=== PATIENT | male | born 1940 | race African-American/Black ===

== ENCOUNTER 2016-06-13 03:59 | Inpatient (IN) ==
[2016-06-09 09:07] LABS: MANUAL DIFF NEEDED? NO
[2016-06-09 09:07] LABS: URINE MICRO REVIEW NEEDED? NO; URINE SOURCE CLEAN CATCH
[2016-06-09 09:55] LABS: BILIRUBIN URINE NEGATIVE (NEGATIVE); BLOOD URINE NEGATIVE (NEGATIVE); COLOR YELLOW; GLUCOSE URINE NEGATIVE (NEGATIVE); LEUKOCYTES URINE NEGATIVE (NEGATIVE); NITRITE URINE NEGATIVE (NEGATIVE); PROTEIN URINE NEGATIVE (NEGATIVE); TURBIDITY URINE CLEAR (CLEAR); UROBILINOGEN URINE NORMAL (NORMAL)
[2016-06-09 09:55] LABS: BASO% 1.6 % (0.0-0.8); EOS# 0.36 X1000 (0.0-0.7); EOS% 4.9 % (0.0-10.0); HEMOGLOBIN 15.3 g/dL (14.0-18.0); IMM GRAN# 0.04 X1000 (0.0-0.04); IMM GRAN% 0.5 % (0.0-0.5); LYMPH# 1.88 X1000 (1.2-3.4); LYMPH% 25.6 % (20.5-51.1); MCH 29.3 PG (27-31); MCV 86.2 FL (81-99); MONO# 0.74 X1000 (0.11-0.59); MONO% 10.1 % (1.7-9.3); NEUT% 57.3 % (42.2-75.2); PLT 354 X1000 (130-400); RBC 5.22 XMIL (4.7-6.1)
[2016-06-09 09:56] LABS: UR EPITHELIAL CELLS <10 /HPF (<10); URINE BACTERIA NEGATIVE /HPF; URINE RBC <10 /HPF (<10); URINE WBC <10 /HPF (<10)
[2016-06-09 10:10] LABS: INR 0.99; PROTIME 10.5 Seconds (9.2-11.7); PTT 26.5 Seconds (22.0-36.0)
[2016-06-09 10:17] LABS: AGAP 12; BUN 15 mg/dL (8-22); CALCIUM 10.9 mg/dL (8.8-10.2); CHLORIDE 96 mmol/L (98-107); COSMO 269; POTASSIUM 4.5 mmol/L (3.5-5.1); SODIUM 134 mmol/L (136-145); TCO2 26 mmol/L (25-35)
--- NOTE | 2016-06-09 11:56 | EKG Report ---
Test Performed on : 06/09/2016 08:45:30 AM Test Reason : PAT Blood Pressure : / mmHG Vent. Rate : 093 BPM Atrial Rate : 093 BPM P-R Int : 148 ms QRS Dur : 094 ms QT Int : 334 ms P-R-T Axes : 066 026 064 degrees QTc Int : 415 ms Normal sinus rhythm. Nonspecific T wave abnormality Abnormal ECG When compared with ECG of 27-NOV-2014 12:53, Nonspecific T wave abnormality no longer evident in Inferior leads Nonspecific T wave abnormality, worse in Lateral leads Confirmed by Edwin HERNÁNDEZ, Tong Wilde ([id number]) on 06/10/2016 5:22:22 PM
[2016-06-13] MEDS ORDERED: PEPCID ONE (07:39)
[2016-06-13] MEDS ORDERED: COLACE ONE (07:39)
[2016-06-13] MEDS ORDERED: REGLAN ONE (07:39)
[2016-06-13] MEDS ORDERED: KEFZOL 2 GM/D5W 50 ML ONE (07:40)
[2016-06-13] MEDS ORDERED: LYRICA ONE (07:40)
[2016-06-13] MEDS ORDERED: LR 1,000 ML ONE ×2 (07:40→12:36)
[2016-06-13] MEDS ORDERED: CELEBREX ONE (07:40)
[2016-06-13] MEDS ORDERED: CYKLOKAPRON 1,000 MG/NS 100 ML ONE (08:55)
[2016-06-13] MEDS ORDERED: SODIUM CHLORIDE 0.9% ONE (08:55)
[2016-06-13] MEDS ORDERED: VANCOMYCIN ONE (08:55)
[2016-06-13] MEDS ORDERED: MARCAINE 0.25% PF/EPI 1:200,000 ONE (08:55)
[2016-06-13] MEDS ORDERED: DIPRIVAN 1% 50 ML ONE (08:55)
[2016-06-13] MEDS ORDERED: DURAMORPH ONE (08:55)
[2016-06-13] MEDS ORDERED: TORADOL ONE (08:55)
[2016-06-13] MEDS ORDERED: CLAVE SECONDARY SET 11953 ONE (08:56)
[2016-06-13] MEDS ORDERED: NEOSPORIN G.U. IRRIGANT ONE (08:56)
[2016-06-13] MEDS ORDERED: EXPAREL 1.3% ONE (08:56)
[2016-06-13 10:26] LABS: URINE MICRO REVIEW NEEDED? NO; URINE SOURCE CATH
[2016-06-13 10:30] LABS: BILIRUBIN URINE NEGATIVE (NEGATIVE); BLOOD URINE NEGATIVE (NEGATIVE); COLOR YELLOW; GLUCOSE URINE NEGATIVE (NEGATIVE); LEUKOCYTES URINE NEGATIVE (NEGATIVE); NITRITE URINE NEGATIVE (NEGATIVE); PH URINE 6.5; PROTEIN URINE NEGATIVE (NEGATIVE); SP GRAVITY URINE 1.012; TURBIDITY URINE CLEAR (CLEAR); UROBILINOGEN URINE NORMAL (NORMAL)
[2016-06-13 10:31] LABS: UR EPITHELIAL CELLS <10 /HPF (<10); URINE BACTERIA NEGATIVE /HPF; URINE RBC <10 /HPF (<10); URINE WBC <10 /HPF (<10)
[2016-06-13] MEDS: CYKLOKAPRON 1,000 MG/NS 100 ML ONE ×2 (10:42→11:08)
[2016-06-13] MEDS ORDERED: NS 1,000 ML ONE (11:23)
[2016-06-13] MEDS ORDERED: FENTANYL ONE (12:21)
[2016-06-13] MEDS ORDERED: DIPRIVAN 1% ONE (12:22)
[2016-06-13] MEDS ORDERED: EPHEDRINE ONE (12:35)
[2016-06-13] MEDS ORDERED: NEO-SYNEPHRINE ONE (12:35)
[2016-06-13] MEDS ORDERED: XYLOCAINE-MPF 2% ONE (12:36)
--- NOTE | 2016-06-13 13:00 | OPERATIVE NOTE ---
PROCEDURE DATE: 06/13/2016 PREOPERATIVE DIAGNOSIS: Right knee failed patellar component. POSTOPERATIVE DIAGNOSES: 1. Right knee failed patellar component. 2. Worn polyethylene insert. PROCEDURE PERFORMED: Right knee revision of patellar component and exchange of polyethylene. SURGEON: Joaquin Go MD. LABOR ARBITRATOR HEARING OFFICE: FAUSTO Valentine ANESTHESIA: General. COMPLICATIONS: None. BLOOD LOSS: Minimal. DESCRIPTION OF PROCEDURE: The patient was brought to the operative suite and placed in supine position. After successful administration of general anesthesia, a well-padded tourniquet was placed on the right proximal thigh and the right lower extremity was prepped and draped in the usual sterile fashion. The leg was exsanguinated and tourniquet insufflated to 350 torr. Using the previous incision and extending it proximally and distally, this was dissected sharply through the skin and full-thickness skin flaps were elevated both medially and laterally. A quadriceps tendon-splitting incision was then made superior to the superior pole of the patella, extending it down to the patella and then around the patella distally for a medial parapatellar arthrotomy. The medial arthrotomy was then elevated off the medial tibial plateau. The scar tissue was removed. The loose patellar component was removed. The inflamed synovium was removed. There was a bony prominence in the superior portion of the patella that was removed. There was what appeared to be a lateral bipartite patellar component that was removed as well. The patella was then shaved flush and debrided of any soft tissue. It was sized to size 32. A size 32 guide was used to drill peg holes. A trial was placed, 32 mm, and found to be excellent patellar tracking. Attention was directed to removing the polyethylene that was removed with an elevator and then the soft tissue was debrided around the tibial component, the knee was copiously irrigated and dried. The knee was copiously infiltrated with Exparel, including the posterior capsule, anterior capsule, medial and lateral collateral ligaments, anterior musculature, and subcutaneous tissue. The definitive 13 mm articular insert was trialed and then found to be an excellent fit, and then the definitive 1 was locked into the tray. The knee was again taken through range of motion and again found to have excellent alignment, balancing, range of motion, and patellar tracking. The trial patella was removed. The definitive patella was cemented into place, excess cement being removed with a Underwood. Once the cement had hardened, any other excess cement was removed with an osteotome. The knee was copiously irrigated and dried, being certain all bone and cement were removed. A drain was placed, exiting superolaterally and buried in the lateral gutter. The medial arthrotomy was closed with interrupted #1 suture. The knee was again taken through range of motion and again found to have excellent patellar tracking, excellent knee flexion, and excellent stability of the knee. The skin edges were approximated with 2-0 Vicryl. The skin was closed with skin meg. A sterile dressing was applied. The patient tolerated the procedure well without complication. At the end of the procedure, all counts were correct x2. The patient was transferred to the recovery room in stable condition.
[2016-06-13] MEDS ORDERED: ZOFRAN IV PRN (13:30)
[2016-06-13] MEDS ORDERED: MORPHINE IV PRN (13:30)
[2016-06-13] MEDS ORDERED: AMBIEN PO PRN (13:30)
[2016-06-13] MEDS: NS 1,000 ML IV SCH (14:25)
[2016-06-13] MEDS: ULTRAM PO SCH ×2 (14:40→19:59)
[2016-06-13] MEDS: TYLENOL PO SCH ×2 (14:40→19:58)
[2016-06-13] MEDS: COLACE PO SCH ×3 (14:41→22:43)
[2016-06-13] MEDS: PERIDEX MT SCH ×3 (14:41→22:44)
--- NOTE | 2016-06-13 15:59 | HISTORY AND PHYSICAL ---
CHIEF COMPLAINT: Right knee pain. HISTORY OF PRESENT ILLNESS: Mr. Garnett is a 76-year-old man with complaint of right knee pain for a couple years. He had a total knee arthroplasty done on the right knee in about the year 2009. Over the last 2 years he has been having pain. Radiographic images of the knee reveals possibly loose prosthetic parts. He is being admitted today for a revision of the right total knee arthroplasty. PAST MEDICAL HISTORY: Hypertension, high cholesterol, peptic ulcer disease, osteoarthritis. SURGICAL HISTORY: Prostatectomy, right total knee arthroplasty, hemorrhoidectomy, hernia, stomach ulcer. PAST FAMILY HISTORY: Noncontributory. SOCIAL HISTORY: . Denies tobacco, denies alcohol. HOME MEDICATIONS: Desyrel 100 mg p.o. at bedtime, nifedipine ER 30 mg p.o. daily, Meloxicam 15 mg p.o. daily, hydrochlorothiazide 12.5 mg p.o. daily, Lipitor 20 mg p.o. daily. ALLERGIES: No known drug allergies. PRIMARY CARE PROVIDER: Dr. Barker. REVIEW OF SYSTEMS: HEENT: Patient reports having glasses and dentures. Denies any other HEENT problems. Cardiac: Patient denies ever having any chronic heart disease or any heart problems whatsoever. Pulmonary: Patient denies any chronic lung disease or any current cough or wheezing. Gastrointestinal: Patient denies any nausea, vomiting, diarrhea, or any chronic gastrointestinal problems. Genitourinary: Patient denies any genitourinary problems. Neurological: Patient reports good sensation and no neurological deficits. Musculoskeletal: The patient reports right knee pain. PHYSICAL EXAMINATION: GENERAL: The patient is awake, sitting up in bed. He is articulate and able to answer questions appropriately. His is at the bedside. HEENT: Head is normocephalic, atraumatic. Pupils equal, round, react to light. Nares patent. Throat without exudate. CARDIAC: S1-S2 auscultated. No murmur, rub or gallop noted. LUNGS: Clear to auscultation bilaterally in all lung barrera. GASTROINTESTINAL: Abdomen is soft, nontender, nondistended. Bowel sounds present all quadrants. GENITOURINARY: Not examined. NEUROLOGICAL: Patient has good sensation to dull touch in all extremities. Cranial nerves 2-12 grossly intact. MUSCULOSKELETAL: On physical examination of the right knee the gentleman has pain with passive range of motion of the right knee. IMPRESSION: Pain in right knee, breakdown of orthopedic device. PLAN: Right total knee revision arthroplasty. The risks, benefits, and alternatives of the surgery were discussed with the patient including the risk of anesthesia, bleeding, damage to blood vessels, nerves, tendons, ligaments, and other imponderables were discussed. The patient agrees to proceed with the surgery at this time. Dictated by FAUSTO Valentine for Joaquin Go MD
[2016-06-13] MEDS: KEFZOL 2 GM/D5W 50 ML IV SCH (16:32)
[2016-06-13] MEDS: OXY IR PO PRN ×2 (16:41→18:35)
[2016-06-13] MEDS: LYRICA PO SCH ×2 (19:58→22:44)
[2016-06-13] MEDS: DESYREL PO SCH ×2 (19:58→22:44)
[2016-06-13] MEDS: CELEBREX PO SCH (19:59)
[2016-06-14] MEDS: KEFZOL 2 GM/D5W 50 ML IV SCH (02:00)
[2016-06-14] MEDS: NS 1,000 ML IV SCH ×4 (02:00→21:42)
[2016-06-14] MEDS: TYLENOL PO SCH ×4 (03:47→21:40)
[2016-06-14] MEDS: ULTRAM PO SCH ×4 (03:47→21:41)
[2016-06-14 05:53] LABS: HEMATOCRIT 39.3 % (42.0-52.0)
[2016-06-14] MEDS: XARELTO PO SCH (06:15)
[2016-06-14] MEDS: LYRICA PO SCH ×2 (08:12→21:41)
[2016-06-14] MEDS: LIPITOR PO SCH (08:12)
[2016-06-14] MEDS: COLACE PO SCH ×2 (08:12→21:41)
[2016-06-14] MEDS: PERIDEX MT SCH ×2 (08:12→21:40)
[2016-06-14] MEDS: PEPCID PO SCH (08:13)
[2016-06-14] MEDS: OXY IR PO PRN ×2 (08:14→14:31)
[2016-06-14] MEDS ORDERED: DECADRON IV ONE (09:00)
[2016-06-14] MEDS ORDERED: HYDROCHLOROTHIAZIDE PO SCH (09:00)
--- NOTE | 2016-06-14 09:12 | PROGRESS NOTE ---
DATE: 06/14/2016 SUBJECTIVE: Jersey Garnett is a 76-year-old male, who is postoperative day 1 from revision of his right total knee arthroplasty, patellar component, as well as his polyethylene insert exchange. He has no complaints today. He states he wishes to go to rehabilitation later in the week. OBJECTIVE: General: He is a well-developed, well-nourished male. He is alert, oriented, and cooperative on exam. Extremities: His dressing is clean, dry, and intact without sign of any significant drainage. He has had minimal output from his drain. Vital Signs: His vital signs are stable. He is afebrile. His hematocrit is 39.3%. Extremities: His leg is neurovascularly intact without signs of infection or deep venous thrombosis. ASSESSMENT: Stable postoperative day 1 visit from a right knee revision. PLAN: We will work on physical therapy with him today. We will remove his drains and change his dressing, take out his Regan and discontinue his intravenous fluids.
[2016-06-14] MEDS: CELEBREX PO SCH (09:20)
[2016-06-14 09:51] LABS: CALCIUM 9.4 mg/dL (8.8-10.2)
[2016-06-14 10:50] LABS: ALBUMIN 3.7 g/dL (3.5-5.0); ALKALINE PHOSPHATASE 44 U/L (32-122); DIRECT BILIRUBIN < 0.20 mg/dL (0.00-0.20); GOT 14 U/L (10-34); GPT 17 U/L (10-44); TOTAL BILIRUBIN 0.29 mg/dL (0.20-1.00); TOTAL PROTEIN 6.2 g/dL (6.3-8.3)
--- NOTE | 2016-06-14 13:18 | CONSULTATION ---
DATE OF CONSULTATION: 06/14/2016 CONSULTING PHYSICIAN: Dr. Go with orthopedics. Consulting major medical management. CHIEF COMPLAINT: Right knee pain. HISTORY OF PRESENT ILLNESS: Mr. Garnett is a 76-year-old male with a history of hypertension, hyperlipidemia, and prostate cancer who is status post right total knee arthroplasty revision by Dr. Go done yesterday. Pre-admission testing revealed the patient had a creatinine of 1.3. Blood work today reveals his creatinine has gone up to 2.0 with a rise in his BUN as well. Prior to surgery patient had no complaints with the exception of his knee pain, postoperatively the patient has been comfortable and pain-free, he has had no chest pain, no shortness of breath. No belly pain, nausea, vomiting or diarrhea. His vital signs have been stable throughout. He became mildly hypotensive yesterday at around 2 in the afternoon. Lowest blood pressure read was 97/63, he is afebrile. We have been asked to follow along for medical management. PAST MEDICAL HISTORY: 1. Hypertension. 2. Hyperlipidemia. 3. Prostate cancer. PAST SURGICAL HISTORY: 1. Right TKA. 2. Prostatectomy. 3. Hemorrhoidectomy. 4. Hernia repairs. 5. Repair of stomach ulcer. FAMILY HISTORY: Mother with colon cancer. Father with some type of blood cancer. REVIEW OF SYSTEMS: Fourteen-point review of systems obtained and found to be negative with the exception of the HPI. ALLERGIES: No known drug allergies. HOME MEDICATIONS: 1. Lipitor 20 mg daily. 2. Hydrochlorothiazide 12.5 mg daily. 3. Meloxicam 15 mg daily. 4. Nifedipine ER 30 mg daily. 5. Trazodone 100 mg p.o. at bedtime. PHYSICAL EXAMINATION: Vital Signs: Blood pressure 102/60, heart rate 72, respiratory 16, O2 saturation is 95% on room air. Temperature is 97.5 degrees. General: This is a thin, elderly- appearing 76-year-old male, lying in hospital bed in no acute distress. Neurologic: The patient is awake, alert, oriented. He follows commands without focal deficits. HEENT: Head is atraumatic and normocephalic. His pupils are equal, round, and reactive to light. Oral mucosa is a bit dry. Trachea is midline. Neck: There is no JVD or carotid bruits. Chest: Clear to auscultation bilaterally. CV: Regular rate and rhythm. S1-S2 is noted. No murmurs, gallops, clicks, rubs. GI: Soft, nondistended, nontender. Bowel sounds positive. Extremities: Right surgical incision is clean, dry, and intact. Lower extremities without edema, clubbing or cyanosis. Pulses are palpable bilaterally. DIAGNOSTIC DATA: Sodium 130, potassium 5, chloride 94, CO2 20, anion gap 16, BUN 29, creatinine 2, glucose 124, calcium 9.4, hemoglobin 13, hematocrit 39.3. ASSESSMENT AND PLAN: 1. Status post right total knee arthroplasty revision: Per Dr. Go and his team, continue early ambulation, DVT prophylaxis, and incentive spirometry. 2. Acute kidney injury: Likely prerenal, we are going to check the renal ultrasound, urine studies and stop his hydrochlorothiazide and any NSAIDs as well as any other nephrotoxic medications. We will increase his normal saline to 150 mL an hour. We will order creatinine for the morning. 3. Hyponatremia, hypovolemic: We are going to check urine studies and increase his IV fluid hydration. 4. Hypertension: Continue his nifedipine and add p.r.n. medications and withhold the hydrochlorothiazide. 5. Hyperlipidemia: Chronic, stable, continue home medications. 6. Deep vein thrombosis prophylaxis is provided with Xarelto which has been ordered by Dr. Go. 7. We would like to thank you for this consultation. We will continue to follow along with you. Dictated by FAUSTO Clark for Alberto Garcia MD
--- NOTE | 2016-06-14 14:19 | Diag Imaging Result Document ---
PROCEDURE NAME: US RENAL 2 (RETROPER) COMPLETE - 06/14/2016 RENAL ULTRASOUND: COMPARISON: None available. FINDINGS: The renal echotexture is grossly unremarkable, bilaterally. No discrete renal mass or hydronephrosis is identified. The right kidney is diminutive as compared to the left. The right kidney measures 7.6 cm in the greatest longitudinal axis. The left kidney measures 9.8 cm in the greatest longitudinal axis. Both renal cortices measure up to 0.9 cm in thickness. The patient voided just prior to the exam and the urinary bladder is completely nondistended. IMPRESSION: Diminutive right kidney as compared to the left. Essentially unremarkable, otherwise.
[2016-06-14] MEDS: DESYREL PO SCH (21:41)
[2016-06-14 21:42] LABS: URINE MICRO REVIEW NEEDED? NO; URINE SOURCE VOIDED
[2016-06-14 22:08] LABS: BILIRUBIN URINE NEGATIVE (NEGATIVE); BLOOD URINE MODERATE (NEGATIVE); COLOR YELLOW; GLUCOSE URINE 70 mg/dL (NEGATIVE); LEUKOCYTES URINE TRACE (NEGATIVE); NITRITE URINE NEGATIVE (NEGATIVE); PROTEIN URINE TRACE mg/dL (NEGATIVE); SP GRAVITY URINE 1.019; TURBIDITY URINE CLEAR (CLEAR); UR EPITHELIAL CELLS <10 /HPF (<10); URINE BACTERIA NEGATIVE /HPF; URINE RBC 20-40 /HPF (<10); URINE WBC <10 /HPF (<10); UROBILINOGEN URINE NORMAL (NORMAL)
[2016-06-15 02:14] LABS: PROTEIN CREAT RATIO 0.1; UR CREAT RANDOM 169.4 mg/dL (14-26); UR PROT RANDOM 17.5 mg/dL
[2016-06-15] MEDS: TYLENOL PO SCH ×5 (04:22→22:20)
[2016-06-15] MEDS: ULTRAM PO SCH ×5 (04:22→22:20)
[2016-06-15] MEDS: XARELTO PO SCH ×2 (04:22→08:16)
[2016-06-15] MEDS: ADALAT CC PO SCH ×2 (05:07→08:43)
[2016-06-15 06:14] LABS: MANUAL DIFF NEEDED? NO
[2016-06-15 06:42] LABS: ALBUMIN 3.1 g/dL (3.5-5.0); CALCIUM 8.6 mg/dL (8.8-10.2); POTASSIUM 4.7 mmol/L (3.5-5.1); TOTAL BILIRUBIN 0.28 mg/dL (0.20-1.00); TOTAL PROTEIN 5.3 g/dL (6.3-8.3)
[2016-06-15 06:49] LABS: BASO% 0.2 % (0.0-0.8); EOS# 0.07 X1000 (0.0-0.7); EOS% 0.4 % (0.0-10.0); HEMATOCRIT 28.5 % (42.0-52.0); HEMOGLOBIN 9.5 g/dL (14.0-18.0); IMM GRAN# 0.15 X1000 (0.0-0.04); IMM GRAN% 0.9 % (0.0-0.5); LYMPH# 1.88 X1000 (1.2-3.4); LYMPH% 11.2 % (20.5-51.1); MCHC 33.3 g/dL (33-37); MCV 86.9 FL (81-99); MONO# 1.75 X1000 (0.11-0.59); MONO% 10.4 % (1.7-9.3); MPV 11.2 FL (7.4-10.4); NEUT% 76.9 % (42.2-75.2); PLT 254 X1000 (130-400); RBC 3.28 XMIL (4.7-6.1)
[2016-06-15] MEDS: LYRICA PO SCH ×2 (08:42→22:20)
[2016-06-15] MEDS: LIPITOR PO SCH (08:42)
[2016-06-15] MEDS: PEPCID PO SCH (08:43)
[2016-06-15] MEDS: COLACE PO SCH ×2 (08:43→22:20)
[2016-06-15] MEDS: PERIDEX MT SCH ×2 (08:44→22:20)
[2016-06-15] MEDS: NS 1,000 ML IV SCH ×3 (08:58→22:21)
--- NOTE | 2016-06-15 12:57 | CONSULTATION ---
DATE OF CONSULTATION: 06/15/2016 REASON FOR ADMISSION: Revision of right knee arthroscopy per Dr. Go. REASON FOR CONSULT: Acute kidney injury. CONSULTING PHYSICIAN: Dr. Vegas. HISTORY OF PRESENT ILLNESS: Mr. Garnett is a 76-year-old male who has not been seen by our service in the past who appears to have a baseline creatinine of 1 a year ago and 1.3 upon his admission for surgery on Monday morning. He is a status post right total knee arthroplasty with revision on Monday per Dr. Go. His pre-admission testing revealed a creatinine of 1-1.3. His creatinine has elevated during his hospital stay and is currently at 2.2. He has no history of kidney disease. He has no complaints of pain. No chest pain. No increased work of breathing. No nausea, vomiting, no diarrhea. No fever or chills. Patient and patient's stated that he has had this happen in the past on his last surgery secondary to anesthesia where he had difficulty in urination. After 1 or 2 days after surgery his urination has improved. Patient stated that he has had a decreased urinary output. Regan catheter was just recently removed and now his urinary output is improved. He states that he has worn an adult diaper yesterday evening and it was full this a.m. His blood pressure has been stable and he has been afebrile. PAST MEDICAL HISTORY: Hypertension, hyperlipidemia, prostate cancer with chronic pain to the right knee. PAST SURGICAL HISTORY: Right TKA, prostatectomy, hemorrhoidectomy, hernia repairs, repair of stomach ulcer. FAMILY HISTORY: Mother is with colon cancer. Father with a type of blood cancer. SOCIAL HISTORY: He is . His is at his bedside. He has family who are attentive to his care. He denies any tobacco, alcohol or illicit drug use. MEDICATIONS ARE: Lipitor, hydrochlorothiazide, meloxicam, nifedipine, trazodone. REVIEW OF SYSTEMS: Times 10 with pertinent positives listed above in the HPI. MOST RECENT VITAL SIGNS: Temperature is 97.7 degrees, blood pressure 103/66, heart rate 91, respirations 16. Patient is on room air. Last recorded saturation 98%. He has had 3242 in, 475 mL out plus incontinence x1 to adult pad. MOST RECENT LABS: Sodium 129, potassium 4.7, chloride 96, CO2 20, BUN 41, creatinine 2.2, glucose 113. His anion gap is 13, calcium is 8.6, albumin 3.1. White count 16.83, hemoglobin 9.5, hematocrit 28.5, with a platelet count of 254,000. Urinalysis shows trace proteinuria and moderate hematuria with a Regan catheter recently removed. Patient has a FENa score of 0.38% indicating he is slightly dry. Renal ultrasound was completed indicating right kidney measuring 7.6 with a left 9.8, slightly hyperechoic. PHYSICAL EXAMINATION: General: This is a 76-year-old white male. He is sitting on the side of the bed. He is in no acute distress. Skin: Warm and dry. HEENT: Normocephalic, atraumatic. Conjunctiva is pale. He has WALTER. Mucous membranes moist. Neck: Supple. Trachea midline. No JVD. Cardiovascular: Regular rate and rhythm. He does have an S4. Lungs: Clear to auscultation anteriorly. Equal excursion. Genitourinary: Not inspected. Patient has an adult pad in place. Extremities: Has 1+ edema bilateral. Integumentary: No rashes or lesions evident with drainage and some sanguinous drainage to the right knee. Neurological: Alert and oriented x3. ASSESSMENT AND PLAN: 1. Acute kidney injury. Patient has a low FENa score indicating that this is more prerenal. He does have small kidneys on ultrasound. We agree with continued treatment. No indications for any medication changes. We will follow labs. Urine output has picked up. Request after his I's and O's. 2. Electrolytes. Patient has mild hyponatremia. He remains hypovolemic. He has normal saline infusing at this time. No indications for changes. 3. Acid-base balance. This is stable. 4. Anemia. This remains low but stable. 5. Status post right total knee arthroplasty with revision per Dr. Go. Continue to monitor. I would to thank you for allowing us to follow with this patient. Seen, data reviewed, discussed with Memo Baldwin on 06/15/16. I agree with the above assessment and plan of care. rg Dictated by FAUSTO Mane for Anderson Nguyen MD [facility]
--- NOTE | 2016-06-15 14:57 | PROGRESS NOTE ---
DATE: 06/15/2016 SUBJECTIVE: This patient states that he is feeling fine. He has no specific complaint. He says that he has right knee discomfort. Physical therapy is on board and he has been doing physical activity. The kidney function has been getting worse, so I consulted Nephrology Department. Probably this is a prerenal issues, but this patient has been on fluids since yesterday. OBJECTIVE: Vital Signs: Temperature 97.7 degrees, pulse 91, respiratory rate 16, blood pressure 103/66, oxygen saturation 98 on room air. HEENT: Head normocephalic. No trauma. Pupils equal, round, and reactive to light and accommodation. Neck: Supple. No jugular venous distention. No masses. Central trachea. Chest: Clear to auscultation. No wheezing. No rales. Cardiovascular: Regular rate and rhythm. No murmurs. Abdomen: Soft, nontender, nondistended. No hepatosplenomegaly. Extremities: Mild right lower extremity edema. He has a right knee wound that does not look infected. No clubbing, no cyanosis. Pulses are present 2+. Neurological examination: The patient is alert and oriented x3. No focal neurological deficits. LABORATORY: WBC 16.8, hemoglobin 9.5, hematocrit 28.5, platelets 254,000. Sodium 129, potassium 4.7, chloride 96, bicarbonate 20. BUN 41, creatinine to 2.2. Glucose 113, calcium 8.6. AST 14, ALT 9. Alkaline phosphatase 33, albumin 3.9. ASSESSMENT AND PLAN: 1. Status post right total knee arthroplasty revision per Dr. Go. Continue with early ambulation, deep venous thrombosis prophylaxis and incentive spirometry. 2. Acute kidney injury, likely pre-renal. We are going to continue with IV fluids. Nephrology Department is on board. 3. Hyponatremia. This patient is still hypovolemic. We will continue with IV fluids. We will monitor. 4. Hypertension. Continue with the same management. 5. Hyperlipidemia. This is chronic and stable. Continue with home medications. 6. Deep venous thrombosis prophylaxis. Is provided by Xarelto, which has been ordered by Dr. Go.
[2016-06-15] MEDS: MILK OF MAGNESIA PO PRN (16:32)
--- NOTE | 2016-06-15 16:32 | PROGRESS NOTE ---
DATE: 06/15/2016 SUBJECTIVE: Jersey Garnett is a 76-year-old male who is postoperative day 2 from a revision right total knee arthroplasty. He has no complaints. OBJECTIVE: He is a well-developed, well-nourished male. He is alert, oriented, and cooperative with exam. His vital signs are stable. He is afebrile. His wound is clean, dry, intact. His leg is neurovascularly intact. ASSESSMENT: Stable postop day 2 visit from a revision right total knee arthroplasty. PLAN: Continue working on physical therapy. He will likely go to rehab tomorrow.
[2016-06-15] MEDS: DESYREL PO SCH (23:10)
[2016-06-16] MEDS: NS 1,000 ML IV SCH ×2 (03:29→14:45)
[2016-06-16] MEDS: XARELTO PO SCH ×2 (04:54→08:27)
[2016-06-16] MEDS: ULTRAM PO SCH ×4 (04:54→22:17)
[2016-06-16] MEDS: TYLENOL PO SCH ×4 (04:55→22:18)
[2016-06-16 06:10] LABS: MANUAL DIFF NEEDED? NO
[2016-06-16 06:35] LABS: CALCIUM 8.6 mg/dL (8.8-10.2); POTASSIUM 5.1 mmol/L (3.5-5.1)
[2016-06-16 06:41] LABS: EOS# 0.64 X1000 (0.0-0.7); EOS% 5.8 % (0.0-10.0); HEMATOCRIT 25.4 % (42.0-52.0); HEMOGLOBIN 8.4 g/dL (14.0-18.0); IMM GRAN# 0.22 X1000 (0.0-0.04); LYMPH# 2.99 X1000 (1.2-3.4); MCHC 33.1 g/dL (33-37); MCV 87.6 FL (81-99); MONO# 1.64 X1000 (0.11-0.59); MONO% 14.8 % (1.7-9.3); MPV 11.4 FL (7.4-10.4); NEUT% 49.4 % (42.2-75.2); PLT 244 X1000 (130-400)
[2016-06-16] MEDS: PEPCID PO SCH (09:38)
[2016-06-16] MEDS: LYRICA PO SCH ×2 (09:38→22:18)
[2016-06-16] MEDS: LIPITOR PO SCH (09:38)
[2016-06-16] MEDS: ADALAT CC PO SCH (09:38)
[2016-06-16] MEDS: COLACE PO SCH ×2 (09:38→22:20)
[2016-06-16] MEDS: MILK OF MAGNESIA PO PRN (09:39)
[2016-06-16] MEDS: PERIDEX MT SCH ×2 (09:39→22:17)
--- NOTE | 2016-06-16 11:56 | Diag Imaging Result Document ---
PROCEDURE NAME: CHEST-PORTABLE - 06/16/2016 PORTABLE CHEST X-RAY: COMPARISON: None. FINDINGS: There are some increased markings in the lung bases particularly on the right, which may represent some bronchitis, fibrosis, or edema. Heart size is top normal. No pneumothorax or pleural effusion. IMPRESSION: Mild, nonspecific increased markings in the right lung base.
[2016-06-16] MEDS: OXY IR PO PRN (13:34)
--- NOTE | 2016-06-16 13:35 | PROGRESS NOTE ---
DATE: 06/16/2016 SUBJECTIVE: This patient states that he is feeling much better. He has no specific complaints. Today. Just mild right lower extremity edema and pain. OBJECTIVE: Vital Signs: Temperature 97.8 degrees, pulse 83, respiratory rate 18, blood pressure 116/55, oxygen saturation 100% on room air. HEENT: Head normocephalic. No trauma. PERRLA. Neck: Supple. No JVD. No masses. Central trachea. Chest: Clear to auscultation. No wheezing. No rales. Cardiovascular: RRR. No murmurs. No gallops. No rubs. Abdomen: Soft, nontender, nondistended. No hepatosplenomegaly. Extremity: Right lower extremity edema. He has a right knee wound that looks clean and not infected. No clubbing, no cyanosis. Pulses are present 2+. Neurological: The patient is alert and oriented x3. No focal neurological deficits. LABORATORY: WBC 11, hemoglobin 8.4, hematocrit 25.4, platelet 244,000. Sodium 130, potassium 5.1, chloride 96, bicarbonate 23, BUN 38, creatinine 1.9, glucose 89, calcium 8.6. ASSESSMENT AND PLAN: 1. Status post right total knee arthroplasty revision per Dr. Go. Continue with early ambulation and DVT prophylaxis and incentive spirometry. 2. Acute kidney injury. This is likely pre renal. This is getting better. Continue taking fluids per oral. 3. Hyponatremia, stable. 4. Hypertension. Continue with the same management. 5. Hyperlipidemia. This is chronic and stable. 6. DVT prophylaxis. This patient is on Xarelto. 7. Anemia, likely secondary to acute blood loss secondary to the surgery. The vital signs are stable.
--- NOTE | 2016-06-16 14:58 | PROGRESS NOTE ---
DATE: 06/16/2016 SUBJECTIVE: Mr. Garnett is resting quietly in bed. He denies any chest pain. No increased work of breathing. States that he is feeling much better and he is able to eat. OBJECTIVE: His most recent vital signs: Temperature 98.2 degrees, blood pressure 120/86, heart rate 92, respirations 18. He is on room air, last recorded saturation 99%. He has had 2325 in, 1400 out per Regan catheter. LABS: Sodium 130, potassium 5.1, chloride 96, CO2 23, BUN 38, creatinine 1.9, glucose 89, anion gap of 11, calcium 8.6. White count 11.07, hemoglobin 8.4, hematocrit 25.4, with a platelet count of 244,000. PHYSICAL EXAMINATION: General: This is a 76-year-old male. He is currently resting in bed. He has no complaints. Skin: Warm and dry. HEENT: Normocephalic, atraumatic. Conjunctivae pale. He has WALTER. Mucous membranes moist. Neck: Supple. Trachea midline. No JVD. Cardiovascular: Regular rate and rhythm. He has no murmur or gallop appreciated. Lungs: Clear to auscultation anteriorly. Equal excursion on room air. Abdomen: Round , soft, nontender. Positive bowel sounds. Genitourinary: Regan catheter remains in place. Adequate urine out. Extremities: He has right knee wound, it looks clean, without drainage. No clubbing or cyanosis. Pulses are palpable. ++ edema with vesicles. Neurological: Patient is alert and oriented x3. ASSESSMENT AND PLAN: 1. Acute kidney injury on chronic kidney disease stage 3. Patient's BUN and creatinine have continued to improve over the last several days. It is now down to 1.9. We agree with continued IV fluids secondary to this being mostly prerenal secondary to his FENa score. No indications for any changes. Adequate urine out. Stop fluids. Lasix. 2. Electrolytes. Mild hyperkalemia with hyponatremia. Again these are slowly correcting, we will not have any intervention today and continue to monitor. 3. Acid-base balance. This is stable. 4. Anemia. This remains low but stable. 5. Status post right total knee arthroplasty revision. This is followed by Dr. Go. I would like to thank you for allowing us to follow with this patient. Seen, data reviewed, discussed with Memo Baldwin on 06/16/16. I agree with the above assessment and plan of care. rg Dictated by FAUSTO Mane for Anderson Nguyen [facility]
[2016-06-16] MEDS: LASIX IV SCH (16:17)
[2016-06-16] MEDS: DESYREL PO SCH (22:19)
[2016-06-17] MEDS: ULTRAM PO SCH ×4 (04:51→21:39)
[2016-06-17] MEDS: TYLENOL PO SCH ×4 (04:51→21:40)
[2016-06-17] MEDS: LASIX IV SCH ×2 (04:51→17:14)
[2016-06-17 06:33] LABS: MANUAL DIFF NEEDED? NO
[2016-06-17 06:54] LABS: ALBUMIN 3.1 g/dL (3.5-5.0); CALCIUM 8.7 mg/dL (8.8-10.2); POTASSIUM 5.1 mmol/L (3.5-5.1); TOTAL BILIRUBIN 0.25 mg/dL (0.20-1.00); TOTAL PROTEIN 5.5 g/dL (6.3-8.3)
[2016-06-17 07:02] LABS: BASO% 1.1 % (0.0-0.8); EOS# 0.73 X1000 (0.0-0.7); EOS% 6.6 % (0.0-10.0); HEMATOCRIT 23.3 % (42.0-52.0); HEMOGLOBIN 7.9 g/dL (14.0-18.0); IMM GRAN# 0.22 X1000 (0.0-0.04); LYMPH# 2.29 X1000 (1.2-3.4); LYMPH% 20.7 % (20.5-51.1); MCHC 33.9 g/dL (33-37); MCV 88.6 FL (81-99); MONO# 1.38 X1000 (0.11-0.59); MONO% 12.5 % (1.7-9.3); MPV 11.2 FL (7.4-10.4); NEUT% 57.1 % (42.2-75.2); PLT 254 X1000 (130-400); RBC 2.63 XMIL (4.7-6.1)
[2016-06-17] MEDS: LIPITOR PO SCH (09:14)
[2016-06-17] MEDS: LYRICA PO SCH ×2 (09:15→21:39)
[2016-06-17] MEDS: PEPCID PO SCH (09:15)
[2016-06-17] MEDS: COLACE PO SCH ×2 (09:15→21:39)
[2016-06-17] MEDS: ADALAT CC PO SCH (09:15)
[2016-06-17] MEDS: PERIDEX MT SCH ×2 (09:18→21:40)
--- NOTE | 2016-06-17 09:31 | Diag Imaging Result Document ---
PROCEDURE NAME: KNEE 3 VIEWS RIGHT - 06/17/2016 PLAIN RADIOGRAPH OF THE RIGHT KNEE, 3 VIEWS: COMPARISON: None available. FINDINGS: There has been a recent right knee arthroplasty. The arthroplasty hardware is in the expected position. There is no evidence of periprosthetic fracture. Anterior skin meg are noted. There is extensive anterior soft tissue edema that is assumed to be postsurgical. A normal patella is not identified. There is dystrophic-appearing ossification in the anterior soft tissues in the normal position of the patella. IMPRESSION: 1. Normally positioned hardware with no periprosthetic fracture identified. 2. Postsurgical anterior soft-tissue edema and a prominent dystrophic-appearing ossification in the usual position of the patella. [facility]
--- NOTE | 2016-06-17 09:55 | PROGRESS NOTE ---
DATE: 06/17/2016 SUBJECTIVE: Jersey Garnett is a 76-year-old male, who underwent a revision total knee arthroplasty this past Monday. He is complaining of buckling in his knee. OBJECTIVE: He is a well-developed, well-nourished male. He is alert, oriented , and cooperative exam. His BUN is improved. He is back to his baseline per Dr. Nguyen. His hematocrit is 23, and he is receiving transfusion this morning. His knee was bleeding yesterday; therefore , we canceled the transferred to rehab. His leg is still quite swollen, and he is receiving some Lasix today per Dr. Nguyen as well. ASSESSMENT: Right total knee arthroplasty with bleeding of his wound and hematoma of his wound with buckling of his knee. PLAN: We will plan on transfusing him today. He is also getting some Lasix and an ultrasound to be sure he does not have a DVT. We will plan on performing x-rays today as well just to check his knee and also plan on doing an I and D of his knee tomorrow and inspecting his extensor mechanism due to his buckling complaints. [facility]
--- NOTE | 2016-06-17 11:59 | PROGRESS NOTE ---
DATE: 06/17/2016 SUBJECTIVE: Mr. Garnett is resting quietly in bed. He has just lost his IV. His nurses are attempting to find another IV site. His family is at his bedside. He denies any chest pain. No increased work of breathing. States his right knee has pain. OBJECTIVE: His most recent vital signs, his temperature is 98.5 degrees, blood pressure 113/62, heart rate 86, respirations 18. He is on room air. Last recorded saturation 97 %. He has had 500 in. He has had 1700 out per Regan catheter. LABORATORY DATA: Sodium 133, potassium 5.1, chloride 98, CO2 30, BUN 35, creatinine 1.5. Glucose 84. His anion gap is 5, calcium 8.7, albumin 3.1. White count 11.07, hemoglobin 7.9, hematocrit 23.3, with a platelet count of 254,000. PHYSICAL EXAMINATION: General: This is a 76-year-old male. He is resting quietly in bed. He is in no acute distress. Skin: Warm and dry. HEENT: Normocephalic, atraumatic. Conjunctivae pale. He has WALTER. Mucous membranes moist. Neck: Supple. Trachea midline. No JVD. Cardiovascular: Regular rate and rhythm. He is without murmur or gallop. Lungs: Clear to auscultation anteriorly. Equal excursion. Abdomen: Round, soft, nontender. Positive bowel sounds. Extremities: He continues with 2+ edema to the right leg, 1+ to the left. He has an x-ray of the knee today with Dr. Go following. Due to the swelling , he has diminished pulse. We will order a ultrasound on this today. Integument: Otherwise integumentary, no rashes or lesions with open wound to the right knee. Some trickle sanguinous drainage noted. Genitourinary: Regan catheter with adequate amount. Neurological: Alert and oriented x3. ASSESSMENT AND PLAN: 1. Acute kidney injury on chronic kidney disease. Patient's BUN and creatinine have continued to improve. We have added Lasix secondary to having increased edema with IV fluids infusing. He has responded well with no adverse reactions to his BUN and creatinine. 2. Electrolytes. These remain stable. 3. Acid-base balance. This is stable. 4. Anemia. This remains low but stable. 5. Status post right knee arthroplasty revision followed by Dr. Go. Secondary to having decreased pulse due to swelling, we will check for venous Doppler for DVT ultrasound today. I would to thank you for allowing us to follow with this patient. Seen, data reviewes, discussed with Memo Baldwin on 06/17/16. I agree with the above assessment and plan of care. Dictated by FAUSTO Mane for Anderson Nguyen MD [facility]
[2016-06-17] MEDS: MILK OF MAGNESIA PO PRN (14:37)
--- NOTE | 2016-06-17 16:27 | PROGRESS NOTE ---
DATE: 06/17/2016 SUBJECTIVE: This patient states that he is feeling better. He is complaining of mild right lower extremity edema and discomfort. This patient has been evaluated by Orthopedic Surgery Department, and they are planning to do probably an I and D tomorrow. His hemoglobin has been dropping, and my plan is to transfuse this patient today and monitor the hemoglobin and hematocrit. His kidney function is getting better. Nephrology Department is following this patient. He will receive today Lasix for mild fluid overload. OBJECTIVE: Vital Signs: Temperature 98.6 degrees, pulse 90, respiratory rate 16, blood pressure 136/71, oxygen saturation 98% on room air. HEENT: Head normocephalic. No trauma. PERRLA. Neck: Supple. No JVD. No masses. Central trachea. Chest: Clear to auscultation. No wheezing. Mild rales at the bases. Cardiovascular: RRR. No murmurs. No gallops. No rubs. Abdomen: Soft, nontender, nondistended. No hepatosplenomegaly. Extremities: Right lower extremity edema. He has right knee wound that looks clean and not infected. No clubbing, no cyanosis. Pulses are present 2+. Neurological examination: The patient is alert, oriented x3. No focal neurological deficits. LABORATORY: WBC is 11.0, hemoglobin 7.9, hematocrit 23.3, platelets 254. Sodium 133, potassium 5.1, chloride 98, bicarbonate 30. BUN 35, creatinine 1.5, glucose 84, calcium 8.7. Albumin 3.1. ASSESSMENT AND PLAN: 1. Status post right total knee arthroplasty revision per Dr. Go. The plan is to go ahead and get incision and drainage probably tomorrow. We will continue with the same treatment for now. 2. Acute kidney injury. This is getting better. Nephrology Department is following this patient. 3. Anemia, likely secondary to acute blood loss. Acute blood acute blood loss, secondary to surgery. He will receive 1 unit of packed red blood cells today. He has no symptoms related with anemia. His vital signs are stable. 4. Hyponatremia, stable. 5. Hypertension. Continue with the same management. This is stable. 6. Hyperlipidemia. This is chronic and stable. 7. Deep vein thrombosis prophylaxis for now has been stopped because tomorrow he is going for surgery.
--- NOTE | 2016-06-17 18:51 | Extremity Venous Study ---
PROCEDURE NAME: Venous U/S Right Leg - 06/17/2016 RIGHT LOWER EXTREMITY VENOUS ULTRASOUND EXAM: [employer]: Benny. REQUESTING PHYSICIAN: Dr. Go INDICATION: Pain, edema status post total knee arthroplasty. FINDINGS: All deep and superficial veins of the right lower extremity were visualized all veins were compressible with forward flow. No evidence of intraluminal thrombus. SUMMARY: No deep or superficial venous thrombosis seen in the right lower extremity.
[2016-06-17] MEDS: DESYREL PO SCH (21:40)
[2016-06-18] MEDS: ULTRAM PO SCH ×4 (06:01→20:54)
[2016-06-18] MEDS: TYLENOL PO SCH ×4 (06:01→20:53)
[2016-06-18 06:25] LABS: MANUAL DIFF NEEDED? NO
[2016-06-18 07:10] LABS: ALBUMIN 3.2 g/dL (3.5-5.0); CALCIUM 10.1 mg/dL (8.8-10.2); POTASSIUM 4.7 mmol/L (3.5-5.1)
[2016-06-18 07:12] LABS: BASO% 0.4 % (0.0-0.8); EOS# 0.69 X1000 (0.0-0.7); EOS% 5.6 % (0.0-10.0); HEMATOCRIT 26.3 % (42.0-52.0); HEMOGLOBIN 8.7 g/dL (14.0-18.0); IMM GRAN# 0.17 X1000 (0.0-0.04); IMM GRAN% 1.4 % (0.0-0.5); LYMPH# 1.97 X1000 (1.2-3.4); LYMPH% 16.1 % (20.5-51.1); MCH 29.5 PG (27-31); MCHC 33.1 g/dL (33-37); MCV 89.2 FL (81-99); MONO# 1.18 X1000 (0.11-0.59); MONO% 9.6 % (1.7-9.3); MPV 11.1 FL (7.4-10.4); NEUT% 66.9 % (42.2-75.2); PLT 291 X1000 (130-400); RBC 2.95 XMIL (4.7-6.1)
[2016-06-18] MEDS ORDERED: NEOSPORIN G.U. IRRIGANT ONE ×2 (07:33→08:30)
[2016-06-18] MEDS ORDERED: KEFZOL 2 GM/D5W 50 ML ONE (07:49)
[2016-06-18] MEDS ORDERED: SODIUM CHLORIDE 0.9% 10 ML ONE (10:15)
[2016-06-18] MEDS: MORPHINE ONE ×3 (10:28→12:48)
[2016-06-18] MEDS ORDERED: FENTANYL ONE (10:29)
[2016-06-18] MEDS: LYRICA PO SCH ×2 (12:49→20:53)
[2016-06-18] MEDS: LIPITOR PO SCH (12:49)
[2016-06-18] MEDS: PEPCID PO SCH (12:50)
[2016-06-18] MEDS: ADALAT CC PO SCH (12:50)
[2016-06-18] MEDS: PERIDEX MT SCH ×2 (12:51→20:53)
[2016-06-18] MEDS: COLACE PO SCH ×2 (12:54→20:54)
[2016-06-18] MEDS ORDERED: DIPRIVAN 1% ONE (13:07)
--- NOTE | 2016-06-18 13:43 | PROGRESS NOTE ---
DATE: 06/18/2016 SUBJECTIVE: This patient just came from surgery. We do not have any report yet, but the patient is stable. He is complaining of right lower extremity pain. I will ask the nurse to give him some medication for this. OBJECTIVE: Vital signs: Heart rate is 80, respiratory rate 16, blood pressure 150/81, oxygen saturation is 94% on 3 L of nasal cannula. HEENT: Head is normocephalic and atraumatic. PERRLA. Neck: Supple. No JVD. No masses. Central trachea. Chest: Clear to auscultation. No wheezing. No rales. Cardiovascular: Regular rate and rhythm. No murmurs. Abdomen: Soft, nontender and nondistended. No hepatosplenomegaly. Extremities: Right lower extremity edema. Wounds are covered with dressing. Pulses are present. Neurologic: The patient is alert and oriented x3. No focal neurological deficits. DIAGNOSTIC DATA: WBC is 12.2, hemoglobin 8.7, hematocrit 26, platelets 291. Sodium is 133, potassium 4.7, chloride 96, bicarbonate 29, BUN is 32, creatinine 1.5, glucose 76, calcium 10.1, albumin 3.2. ASSESSMENT AND PLAN: 1. Status post right total knee arthroplasty revision per Dr. Go. Postoperative day 5 and is status post I and D of the right knee wound. Orthopedic Surgery is following this patient. 2. Acute kidney injury. This is getting better. Nephrology Department is following this patient. We will continue to monitor with daily BMP. 3. Anemia. Likely secondary to acute blood loss. This patient received 1 unit of PRBC yesterday, and the hemoglobin improved. We will monitor. 4. Hyponatremia, stable. 5. Hypertension. Continue with the same management. 6. Hyperlipidemia. This is chronic and stable. Continue with the same management. 7. DVT prophylaxis. We will resume anticoagulation in the near future.
--- NOTE | 2016-06-18 15:59 | OPERATIVE NOTE ---
PROCEDURE DATE: 06/18/2016 PREOPERATIVE DIAGNOSIS: Right knee revision total knee arthroplasty with development of a hematoma and knee instability. POSTOPERATIVE DIAGNOSIS: Right knee hematoma with quadriceps tendon rupture. PROCEDURE: Right knee evacuation of hematoma, irrigation and debridement of the knee, patellectomy and a quad tendon repair to the patella tendon. ANESTHESIA: General. SURGEON: Joaquin Go MD. COMPLICATIONS: None. BLOOD LOSS: Minimal. DRAINS: Hemovac x1. DESCRIPTION OF PROCEDURE: The patient brought to operative suite and placed in the supine position. After successful administration of general anesthesia, a well-padded tourniquet was placed on the right proximal thigh. The right lower extremity was prepped and draped in the usual sterile fashion. The wound was opened and the hematoma was evacuated. He was found have a complete rupture of the quad tendon and the patella was just floating in the knee. Therefore patellectomy was performed. The knee was copiously irrigated and dried, being certain all clot was removed and then the quadriceps tendon was repaired back to the patella tendon with a #5 FiberWire suture. Then it was reinforced with #5 FiberWire [id number] sutures and then repaired medially and laterally with #2 FiberWire sutures on the medial and lateral retinaculum. Excellent repair was obtained. The drain was placed exiting superior laterally and then skin edge approximated with 2-0 Vicryl. Skin was closed with skin meg and a sterile dressing was applied. The patient tolerated the procedure well without complication. At the end the procedure, all counts correct x2. The patient was transferred to the recovery room in stable condition.
[2016-06-18] MEDS: KEFZOL 2 GM/D5W 50 ML IV SCH (17:21)
[2016-06-18] MEDS ORDERED: NS 500 ML ONE (17:27)
[2016-06-18] MEDS: DESYREL PO SCH (20:54)
[2016-06-19] MEDS: KEFZOL 2 GM/D5W 50 ML IV SCH ×2 (01:16→08:01)
[2016-06-19 05:34] LABS: MANUAL DIFF NEEDED? NO
[2016-06-19 05:41] LABS: BASO% 0.4 % (0.0-0.8); EOS# 0.42 X1000 (0.0-0.7); HEMATOCRIT 27.7 % (42.0-52.0); HEMOGLOBIN 9.2 g/dL (14.0-18.0); IMM GRAN# 0.19 X1000 (0.0-0.04); IMM GRAN% 1.3 % (0.0-0.5); LYMPH# 1.36 X1000 (1.2-3.4); LYMPH% 9.7 % (20.5-51.1); MCH 30.2 PG (27-31); MCHC 33.2 g/dL (33-37); MCV 90.8 FL (81-99); MONO# 1.13 X1000 (0.11-0.59); MPV 10.8 FL (7.4-10.4); NEUT% 77.6 % (42.2-75.2); PLT 323 X1000 (130-400); RBC 3.05 XMIL (4.7-6.1)
[2016-06-19] MEDS: TYLENOL PO SCH ×6 (05:56→21:19)
[2016-06-19] MEDS: ULTRAM PO SCH ×4 (05:56→21:20)
[2016-06-19 06:42] LABS: ALBUMIN 3.2 g/dL (3.5-5.0); CALCIUM 9.2 mg/dL (8.8-10.2); POTASSIUM 5.4 mmol/L (3.5-5.1)
[2016-06-19] MEDS: COLACE PO SCH ×2 (08:04→21:19)
[2016-06-19] MEDS: ADALAT CC PO SCH (08:04)
[2016-06-19] MEDS: LIPITOR PO SCH (08:04)
[2016-06-19] MEDS: PERIDEX MT SCH ×2 (08:05→21:19)
[2016-06-19] MEDS: PEPCID PO SCH (08:05)
[2016-06-19] MEDS: MILK OF MAGNESIA PO PRN (08:10)
[2016-06-19] MEDS: OXY IR PO PRN ×2 (08:10→14:48)
--- NOTE | 2016-06-19 11:13 | PROGRESS NOTE ---
DATE: 06/19/2016 SUBJECTIVE: Mr. Garnett is seen one day status post I D of his right total knee. At the present time he is afebrile. Vital signs are stable. He reports he is doing relatively well. His dressing is clean and dry. He appears to be motor and sensory intact. White count is slightly elevated at 14 from 12 yesterday. His hematocrit is 27.7, which is higher than yesterday. The remainder of the labs are otherwise unremarkable. Presently he is doing well. We will continue to heave the drain in today and consider removal per Dr. Go tomorrow.
[2016-06-19] MEDS ORDERED: DULCOLAX PR ONE (12:39)
[2016-06-19] MEDS: LYRICA PO SCH ×2 (15:04→21:19)
--- NOTE | 2016-06-19 16:28 | PROGRESS NOTE ---
DATE: 06/19/2016 SUBJECTIVE: This patient states that he is feeling fine. He is complaining of right lower extremity pain. Family members at the bedside. This patient is tolerating p.o. He has been constipated, but also he has been getting laxatives and stool softener. I will try today with Dulcolax suppository x1 and I will follow. OBJECTIVE: Vitals: Temperature 98.4 degrees, pulse 91, respiratory rate 20, blood pressure 157/72, O2 saturation 100% on 3 L of nasal cannula. HEENT: Head normocephalic. No trauma. PERRLA. Neck: Supple. No JVD. No masses. Central trachea. Chest: Clear to auscultation. No wheezing. No rales. Abdomen: Is soft, obese, protuberant, nontender, nondistended. Positive bowel sounds. Extremities: Right lower extremity edema he has a dressing that is clean and dry at the level of the knee. He appears to be motor and sensory intact. He has a drain also. Neurological examination: Patient is alert and oriented x3. He moves all 4 extremities. LABORATORY: WBC 14, hemoglobin 9.2, hematocrit 27.7, platelet 323,000. Sodium 130, potassium 5.4, chloride 94, bicarbonate 26, BUN 31, creatinine 1.6, glucose 120, calcium 9.2, albumin 3.2. ASSESSMENT AND PLAN: 1. Status post right total knee arthroplasty revision, postoperative day #5 and also is status post right knee evacuation of hematoma, irrigation and debridement of the knee, patellectomy and a quadriceps tendon repair to the patellar tendon, postoperative day #1. This patient has a drain coming out from that knee. Orthopedic surgery is following this patient closely. 2. Acute kidney injury. This is getting better. Nephrology Department is following this patient. Compared with yesterday. The creatinine is around the same, we will continue to monitor with daily basic metabolic panel. 3. Hyperkalemia, the potassium today is 5.4, we will continue to monitor. No treatment for now. 4. Leukocytosis. I will put this patient on cefazolin IV every 8 hours. He does not have any fever or chills. He has been having multiple knee surgeries, so I will continue to call over this patient with antibiotics. 5. Anemia, likely secondary to acute blood loss. This patient has been transfused and the hemoglobin is stable. We will continue to monitor. 6. Hypertension. Continue with the same management. 7. Hyperlipidemia. This is chronic and stable. Continue with the same management. 8. Deep venous thrombosis prophylaxis. I will put this patient back on Xarelto 10 daily.
[2016-06-19] MEDS: KEFZOL 1 GM/D5W 50 ML IV SCH ×2 (16:52→21:19)
[2016-06-19] MEDS: DESYREL PO SCH ×2 (21:19→22:47)
[2016-06-20] MEDS: KEFZOL 1 GM/D5W 50 ML IV SCH ×3 (06:11→22:14)
[2016-06-20] MEDS: ULTRAM PO SCH ×4 (06:11→22:15)
[2016-06-20] MEDS: TYLENOL PO SCH ×4 (06:12→22:14)
[2016-06-20] MEDS: XARELTO PO SCH (06:12)
[2016-06-20 07:03] LABS: MANUAL DIFF NEEDED? NO
[2016-06-20] MEDS ORDERED: VENTOLIN HFA ONE (07:27)
[2016-06-20] MEDS ORDERED: NEOSTIGMINE ONE (07:27)
[2016-06-20] MEDS ORDERED: LABETALOL (DOSE) ONE (07:27)
[2016-06-20] MEDS ORDERED: NORCURON ONE (07:27)
[2016-06-20 07:28] LABS: BASO% 0.3 % (0.0-0.8); EOS# 0.56 X1000 (0.0-0.7); EOS% 4.4 % (0.0-10.0); HEMATOCRIT 24.3 % (42.0-52.0); HEMOGLOBIN 7.8 g/dL (14.0-18.0); IMM GRAN# 0.16 X1000 (0.0-0.04); IMM GRAN% 1.3 % (0.0-0.5); LYMPH# 1.24 X1000 (1.2-3.4); LYMPH% 9.7 % (20.5-51.1); MCH 29.7 PG (27-31); MCHC 32.1 g/dL (33-37); MCV 92.4 FL (81-99); MONO# 1.44 X1000 (0.11-0.59); MONO% 11.3 % (1.7-9.3); MPV 10.4 FL (7.4-10.4); PLT 298 X1000 (130-400); RBC 2.63 XMIL (4.7-6.1)
[2016-06-20] MEDS ORDERED: ROBINUL ONE (07:28)
[2016-06-20] MEDS ORDERED: OFIRMEV 1000 MG/ISOTONIC SOLN 100 ML ONE (07:28)
[2016-06-20] MEDS ORDERED: QUELICIN (DOSE) ONE (07:28)
[2016-06-20] MEDS ORDERED: LR 1,000 ML ONE (07:28)
[2016-06-20] MEDS ORDERED: ANESTHESIA PB SET 88 IN 5742 ONE (07:28)
[2016-06-20] MEDS ORDERED: EXTENSION SET 32 IN 4522 ONE (07:28)
[2016-06-20] MEDS ORDERED: XYLOCAINE-MPF 2% ONE (07:28)
[2016-06-20 07:56] LABS: AGAP 8; BUN 28 mg/dL (8-22); CALCIUM 9.3 mg/dL (8.8-10.2); CHLORIDE 96 mmol/L (98-107); COSMO 274; POTASSIUM 4.7 mmol/L (3.5-5.1); SODIUM 134 mmol/L (136-145); TCO2 30 mmol/L (25-35)
[2016-06-20] MEDS ORDERED: NS 500 ML IV ONE ×2 (08:00→17:22)
[2016-06-20] MEDS: LIPITOR PO SCH (09:25)
[2016-06-20] MEDS: LYRICA PO SCH ×2 (09:25→22:15)
[2016-06-20] MEDS: COLACE PO SCH ×2 (09:26→22:14)
[2016-06-20] MEDS: PEPCID PO SCH (09:26)
[2016-06-20] MEDS: PERIDEX MT SCH ×2 (09:26→22:14)
[2016-06-20] MEDS: ADALAT CC PO SCH (09:26)
--- NOTE | 2016-06-20 14:51 | PROGRESS NOTE ---
DATE: 06/20/2016 SUBJECTIVE: Mr. Jersey Garnett states that he is feeling well. He is currently resting in the bed, eating lunch. He has no complaints of pain, nausea, or vomiting. No complaints of shortness of breath. He is currently receiving a blood transfusion at this time. OBJECTIVE: Vital signs: Temperature 98.8 degrees, heart rate 86, respiratory rate 20, blood pressure 125/71, O2 saturation 99% on room air. General: Mr. Garnett is a 76-year-old male. He is in no acute distress. Able to answer all questions appropriately Cardiovascular: S1, S2. Regular rate and rhythm. No rubs, gallops, murmurs. Pulmonary: Clear to auscultation. Bilateral breath sounds. No accessory muscle use or work of breathing noted. Currently on room air. GI: Soft, nontender, nondistended. Positive bowel sounds x4. Extremities: No edema in the left extremity. The right extremity has an accordion drainage system with dark blood and a knee immobilizer. The foot is warm with +2 dorsalis pedal pulses. He is able to move foot around without complications. LABORATORY DATA: White blood cells 12,000, hemoglobin 7.8, hematocrit 24.3, platelet count 298,000. Sodium 134, potassium 4.7, BUN 28, creatinine is 1.3, glucose 105, calcium 9.3, albumin 3.0. IMAGING: None. ASSESSMENT AND PLAN: 1. Status post right total knee arthroplasty revision, day 6, with evacuation of hematoma, irrigation and debridement, and patellectomy with quadriceps tendon repair to the patellar tendon, postop day 1. The accordion drain apparently leaked through the night. Had some more blood that was unable to be measured. Ortho is following. He was evaluated by physical therapy yesterday. He does have some difficulty with walking. Strength was 4/5. The plan is for 5-7 times per week of physical therapy for 2 weeks. He requires an extended period of time with 2 person assist in gait and sitting and standing. 2. Acute kidney injury, improving. Creatinine is down to 1.3. We will continue to trend. 3. Hyperkalemia, resolved. 4. Leukocytosis. Continue cefazolin. Denied fever or chills. This is likely secondary to inflammatory response of surgery. 5. Acute blood loss anemia. He will receive 1 unit of packed red blood cells today and continue to trend daily. 6. Hypertension. Continue medications. 7. Hyperlipidemia. Continue medications. 8. Deep venous thrombosis prophylaxis. Xarelto 10 daily. 9. Gastrointestinal prophylaxis. Pepcid. Dictated by FAUSTO Parker for Alberto Garcia MD
--- NOTE | 2016-06-20 17:14 | PROGRESS NOTE ---
DATE: 06/20/2016 SUBJECTIVE: Patient is sitting up in bed. He states he is eating breakfast without difficulty. OBJECTIVE: Vital Signs: Temperature 99.2 degrees, pulse 93, respiratory rate 18, blood pressure 130/76. Intake and output: Intake 838 mL. Output 2.6 L. General: Elderly gentleman, resting in bed. Awake and alert. No acute distress. HEENT: Normocephalic, atraumatic. Conjunctivae remain pale. Oral mucosa moist. Neck: Supple. No JVD. Cardiovascular: Regular rate and rhythm without murmur or gallop. Pulmonary: Equal excursion. He is clear bilaterally. Abdomen: Soft. Positive bowel sounds. : Not inspected. He is voiding. Extremities : He continues with 2+ pretibial edema. integumentary: Skin is warm and dry otherwise. LAB DATA: Sodium 134, potassium 4.7, CO2 30, BUN 28, creatinine 1.3. ASSESSMENT AND PLAN: 1. Acute kidney injury, resolved. The patient's creatinine is back to his historical baseline. He has had excellent urine output and was in negative territory overnight. We will sign off at this time. Please do not hesitate to call us if there is change in this patient's status. 2. Electrolytes, acid-base balance, anemia. These are all stable. 3. Status post right knee arthroplasty. Followed by Dr. Go. Data reviewed, discussed with Bruno Mackenzie on 06/20/16. I agree with the above assessment and plan of care. rg Dictated by FAUSTO Corbett for Anderson Nguyen MD [facility]
--- NOTE | 2016-06-20 19:43 | PROGRESS NOTE ---
DATE: 06/20/2016 SUBJECTIVE: Jersey Garnett is a 76-year-old male, who is 7 days out from a revision right total knee and 2 days out from a patellectomy secondary to quad tendon rupture. He has no complaints. OBJECTIVE: General Appearance: He is a well-developed, well-nourished male. He is alert, oriented, and cooperative exam. His blood count is slightly low at 24. Vital Signs: His vital signs are otherwise stable. Extremities: His leg is neurovascularly intact. ASSESSMENT: Satisfactory postoperative day 2 visit from a patellectomy and postoperative day 7 visit from a revision total knee arthroplasty. PLAN: We will discontinue his drain and dressing. Have physical therapy work with him, weightbearing as tolerated in the knee immobilizer. Hopefully, we can get him to rehab later in the week.
[2016-06-20] MEDS: DESYREL PO SCH (22:14)
[2016-06-21] MEDS: ULTRAM PO SCH ×5 (04:28→22:13)
[2016-06-21] MEDS: TYLENOL PO SCH ×4 (04:29→22:13)
[2016-06-21 06:07] LABS: MANUAL DIFF NEEDED? NO
[2016-06-21 06:23] LABS: BASO% 0.4 % (0.0-0.8); EOS# 0.73 X1000 (0.0-0.7); EOS% 5.5 % (0.0-10.0); HEMATOCRIT 29.5 % (42.0-52.0); HEMOGLOBIN 9.8 g/dL (14.0-18.0); IMM GRAN% 1.5 % (0.0-0.5); LYMPH# 1.81 X1000 (1.2-3.4); LYMPH% 13.6 % (20.5-51.1); MCH 29.8 PG (27-31); MCHC 33.2 g/dL (33-37); MCV 89.7 FL (81-99); MONO# 1.33 X1000 (0.11-0.59); MPV 10.1 FL (7.4-10.4); PLT 306 X1000 (130-400); RBC 3.29 XMIL (4.7-6.1)
[2016-06-21] MEDS: KEFZOL 1 GM/D5W 50 ML IV SCH ×3 (06:43→22:13)
[2016-06-21] MEDS: XARELTO PO SCH (06:43)
[2016-06-21 06:48] LABS: AGAP 10; ALBUMIN 3.1 g/dL (3.5-5.0); ALKALINE PHOSPHATASE 39 U/L (32-122); BUN 26 mg/dL (8-22); CALCIUM 9.5 mg/dL (8.8-10.2); CHLORIDE 95 mmol/L (98-107); COSMO 270; GOT 24 U/L (10-34); GPT 13 U/L (10-44); MAGNESIUM 2.2 mg/dL (1.5-2.7); POTASSIUM 4.7 mmol/L (3.5-5.1); SODIUM 133 mmol/L (136-145); TCO2 28 mmol/L (25-35); TOTAL BILIRUBIN 0.48 mg/dL (0.20-1.00); TOTAL PROTEIN 6.1 g/dL (6.3-8.3)
--- NOTE | 2016-06-21 09:05 | PROGRESS NOTE ---
DATE: 06/21/2016 SUBJECTIVE: Mr. Garnett is a 76-year-old male who is postoperative day 3 from a right knee patellectomy and postoperative day 8 from a right revision total knee arthroplasty. He has no complaints. He did not do therapy yesterday due to receiving a blood transfusion. OBJECTIVE: General: He is a well-developed, well-nourished male. He is alert and cooperative to the examination. Extremities: His wound is clean, dry, and intact without sign of infection. His leg is neurovascularly intact. ASSESSMENT: Stable right knee patellectomy. PLAN: We will begin physical therapy today since he no longer has risk of bleeding as his dressing is clean, dry, and intact. I am going to place him on Xarelto. We will let him go to rehab when he is safe to go to rehab with ambulation.
[2016-06-21] MEDS: MIRALAX PO SCH (10:27)
[2016-06-21] MEDS: PEPCID PO SCH (10:28)
[2016-06-21] MEDS: LIPITOR PO SCH (10:28)
[2016-06-21] MEDS: COLACE PO SCH (10:29)
[2016-06-21] MEDS: ADALAT CC PO SCH (10:29)
[2016-06-21] MEDS: PERIDEX MT SCH ×2 (10:33→22:12)
[2016-06-21] MEDS: LYRICA PO SCH ×2 (10:42→22:13)
--- NOTE | 2016-06-21 10:53 | PROGRESS NOTE ---
DATE: 06/21/2016 SUBJECTIVE: Mr. Jersey Garnett was standing at the bedside with physical therapy using a walker. States no complaints at this time. He did receive blood transfusion yesterday and right knee immobilizer stable with accordion drain. Drain site dry and intact. Drain was removed yesterday. PHYSICAL EXAMINATION: Vital Signs: Temperature 97.8 degrees, heart rate 86, respiratory rate 14, blood pressure 159/80, O2 saturation 97% on room air. General: Mr. Garnett is a 76-year-old, male, in no acute distress. Answers questions appropriately. Cardiovascular: S1 and S2. Regular rate and rhythm. No rubs, gallops, or murmurs. Pulmonary: Clear to auscultation bilateral breath sounds. No accessory muscle use or work of breathing noted. GI: Soft, nontender, nondistended. Positive bowel sounds x4. No bowel movement x3 days. Extremities: Trace edema noted in the lower extremities. There are +2 dorsalis and radial pulses. LABORATORY DATA: White blood cells 13,000, hemoglobin 9.8, hematocrit 29.5, platelet count 306,000. Sodium 133, potassium 4.7, BUN 26, creatinine is 1.2, glucose 72. Phosphorus 2.6, albumin 3.1. IMAGING: None. ASSESSMENT AND PLAN: 1. Status post right knee total arthroplasty revision day 6, postoperative day 6, and evacuation of hematoma, irrigation, debridement, and patellectomy with quadriceps tendon repair postoperative day 3. Accordion drain has been removed by orthopedics. Physical therapy started today. He was actually standing at the bedside. His strength is 4/5. He is to have physical therapy 5-7 times per week of physical therapy for 2 weeks. 2. Acute kidney injury, improving. Creatinine is down 1.2. 3. Hyperkalemia, is resolved. 4. Leukocytosis. Continue cefazolin. Denied fever or chills. This is likely just inflammatory. 5. Acute blood loss anemia. He received blood yesterday. Today, hemoglobin and hematocrit are stable. 6. Hypertension. Continue home medications. 7. Hyperlipidemia. Continue medications. 8. Deep venous thrombosis prophylaxis. Xarelto. 9. Gastrointestinal prophylaxis. Pepcid. 10. Disposition. Waiting for rehabilitation for aggressive physical therapy. Dictated by FAUSTO Parker for Alberto Garcai MD
[2016-06-21] MEDS: DESYREL PO SCH (22:13)
[2016-06-21] MEDS: PERICOLACE PO SCH (22:13)
[2016-06-22] MEDS: ULTRAM PO SCH ×3 (05:20→16:38)
[2016-06-22] MEDS: TYLENOL PO SCH ×4 (05:20→23:48)
[2016-06-22] MEDS: XARELTO PO SCH (05:21)
[2016-06-22] MEDS: KEFZOL 1 GM/D5W 50 ML IV SCH ×4 (05:21→23:47)
[2016-06-22 06:06] LABS: MANUAL DIFF NEEDED? NO
[2016-06-22 06:27] LABS: BASO% 0.3 % (0.0-0.8); EOS# 0.52 X1000 (0.0-0.7); EOS% 3.7 % (0.0-10.0); HEMATOCRIT 31.6 % (42.0-52.0); HEMOGLOBIN 10.3 g/dL (14.0-18.0); IMM GRAN# 0.24 X1000 (0.0-0.04); IMM GRAN% 1.7 % (0.0-0.5); LYMPH# 1.35 X1000 (1.2-3.4); LYMPH% 9.5 % (20.5-51.1); MCH 29.3 PG (27-31); MCHC 32.6 g/dL (33-37); MCV 89.8 FL (81-99); MONO% 11.9 % (1.7-9.3); NEUT% 72.9 % (42.2-75.2); PLT 357 X1000 (130-400); RBC 3.52 XMIL (4.7-6.1)
[2016-06-22 06:36] LABS: AGAP 8; ALKALINE PHOSPHATASE 43 U/L (32-122); BUN 23 mg/dL (8-22); CHLORIDE 93 mmol/L (98-107); COSMO 267; GOT 25 U/L (10-34); GPT 17 U/L (10-44); MAGNESIUM 2.2 mg/dL (1.5-2.7); POTASSIUM 4.9 mmol/L (3.5-5.1); SODIUM 131 mmol/L (136-145); TCO2 30 mmol/L (25-35); TOTAL BILIRUBIN 0.43 mg/dL (0.20-1.00); TOTAL PROTEIN 6.4 g/dL (6.3-8.3)
[2016-06-22] MEDS: LIPITOR PO SCH (10:08)
[2016-06-22] MEDS: ADALAT CC PO SCH (10:08)
[2016-06-22] MEDS: PEPCID PO SCH (10:08)
[2016-06-22] MEDS: PERIDEX MT SCH (10:08)
[2016-06-22] MEDS: MIRALAX PO SCH (10:10)
[2016-06-22] MEDS: PERICOLACE PO SCH ×2 (10:10→23:48)
[2016-06-22] MEDS: LYRICA PO SCH (10:19)
[2016-06-22] MEDS ORDERED: SODIUM PHOSPHATE 20 MMOL in NS 250 ML IV ONE (11:00)
--- NOTE | 2016-06-22 12:15 | PROGRESS NOTE ---
DATE: 06/22/2016 Jersey Garnett is a 76-year-old male who is postoperative day 4 from patellectomy and postoperative day 9 from a revision of this right total knee arthroplasty. He has no complaints. OBJECTIVE: He is well-developed, well-nourished male. He is alert, and cooperative. His wound is clean, dry, intact without sign of infection. His leg is neurovascularly intact. His vital signs are stable. He is afebrile. His hematocrit is 31.6%. ASSESSMENT: Stable right knee. PLAN: We will continue working on physical therapy with him. Once he is safe from a physical therapy standpoint to be discharged to rehab we will likely discharge him, hopefully tomorrow or Monday, possibly Monday.
--- NOTE | 2016-06-22 16:41 | PROGRESS NOTE ---
DATE: 06/22/2016 SUBJECTIVE: This patient states that he is doing better. When I evaluated this patient he was sitting at the bedside. Physical therapy is on board and Orthopedic Surgery is taking care of this patient as well. Drain was removed 2 days ago. No signs of bleed. OBJECTIVE: Vital Signs: Temperature 98.7, pulse 86, respiratory rate 16, blood pressure 131/66, O2 saturation 97% on room air. HEENT: Head normocephalic. No trauma. PERRLA. Neck: Supple. No JVD. No masses. Central trachea. Chest: Clear to auscultation. No wheezing. No rales. Cardiovascular: RRR. No murmurs. Abdomen: Soft, nontender, nondistended. No hepatosplenomegaly. Extremities: Right lower extremity edema. There is a wound at the level of the knee without any sign of bleed or infection. Pulses are present. No clubbing. No cyanosis. Neurological: The patient is alert and oriented x3. No focal neurological deficits. LABORATORY: WBC 14.2, hemoglobin 10.3, hematocrit 31.6, platelet 357,000. Sodium 131, potassium 4.9, chloride 93, bicarbonate 30, BUN 23, creatinine 1.3. Glucose 104. Phosphorus 2.5, calcium 10, magnesium 2.2, albumin 3. ASSESSMENT AND PLAN: 1. Status post right knee total arthroplasty revision, postoperative day #7 and evacuation of hematoma, irrigation, debridement and patellectomy with quadriceps tendon repair postoperative day #4. This patient will continue with physical therapy and once he is more stable he will be discharged to a rehab center. Hopefully will be in the coming days. 2. Acute kidney injury. His creatinine 2 years ago was 1. Today it is 1.3. Probably this is his baseline. We will continue with the same management for now. 3. Hyperkalemia, resolved. 4. Leukocytosis. He is on cefazolin. No fever. No chills. 5. Acute blood loss anemia. He received blood 2 days ago. We will continue monitoring the hemoglobin and hematocrit. 6. Hypertension. Continue with home medication. 7. Hyperlipidemia. Continue with medications. 8. DVT prophylaxis. This patient is on Xarelto. 9. GI prophylaxis. Continue with the same treatment. 10. Disposition. At this moment this patient is getting physical therapy. Hopefully in 2 or 3 days we will be able to discharge this patient.
[2016-06-22] MEDS: OXY IR PO PRN (20:54)
[2016-06-22] MEDS: DESYREL PO SCH (23:50)
[2016-06-23] MEDS: ULTRAM PO SCH ×4 (05:21→17:40)
[2016-06-23 05:51] LABS: MANUAL DIFF NEEDED? NO
[2016-06-23 05:55] LABS: BASO% 0.2 % (0.0-0.8); EOS# 0.57 X1000 (0.0-0.7); EOS% 4.1 % (0.0-10.0); HEMOGLOBIN 10.1 g/dL (14.0-18.0); IMM GRAN# 0.17 X1000 (0.0-0.04); IMM GRAN% 1.2 % (0.0-0.5); LYMPH# 1.14 X1000 (1.2-3.4); LYMPH% 8.2 % (20.5-51.1); MCH 29.4 PG (27-31); MCHC 32.6 g/dL (33-37); MCV 90.4 FL (81-99); MONO# 1.51 X1000 (0.11-0.59); MONO% 10.9 % (1.7-9.3); MPV 9.5 FL (7.4-10.4); NEUT% 75.4 % (42.2-75.2); PLT 399 X1000 (130-400); RBC 3.43 XMIL (4.7-6.1)
[2016-06-23 06:10] LABS: AGAP 11; ALKALINE PHOSPHATASE 45 U/L (32-122); BUN 26 mg/dL (8-22); CALCIUM 9.9 mg/dL (8.8-10.2); CHLORIDE 95 mmol/L (98-107); COSMO 275; GOT 24 U/L (10-34); GPT 18 U/L (10-44); MAGNESIUM 2.1 mg/dL (1.5-2.7); POTASSIUM 4.6 mmol/L (3.5-5.1); SODIUM 135 mmol/L (136-145); TCO2 29 mmol/L (25-35); TOTAL BILIRUBIN 0.41 mg/dL (0.20-1.00); TOTAL PROTEIN 6.4 g/dL (6.3-8.3)
[2016-06-23] MEDS: TYLENOL PO SCH ×3 (06:23→17:40)
[2016-06-23] MEDS: XARELTO PO SCH (06:24)
[2016-06-23] MEDS: LYRICA PO SCH ×3 (08:25→20:49)
[2016-06-23] MEDS: PERIDEX MT SCH ×3 (08:25→20:48)
[2016-06-23] MEDS: KEFZOL 1 GM/D5W 50 ML IV SCH ×2 (09:00→15:34)
[2016-06-23] MEDS: MIRALAX PO SCH (09:11)
[2016-06-23] MEDS: PERICOLACE PO SCH ×2 (09:11→20:49)
[2016-06-23] MEDS: PEPCID PO SCH (09:12)
[2016-06-23] MEDS: ADALAT CC PO SCH (09:12)
[2016-06-23] MEDS: LIPITOR PO SCH (09:12)
--- NOTE | 2016-06-23 11:24 | PROGRESS NOTE ---
DATE: 06/22/2016 SUBJECTIVE: Patient reports feeling fine. Mild pain in the right knee. Denies any fever, chills, any pain when he urinates. OBJECTIVE: Vital Signs: Temperature 98.6 degrees, heart rate 83, respiratory rate 20, blood pressure 137/62, O2 saturation 99% on room air. General Examination: This is a 76-year-old male, lying in bed, in no acute distress. HEENT: Head is normocephalic, atraumatic. Anicteric sclerae and pale conjunctivae. Mucous membranes moist. Neck: Supple. No JVD noted. No carotid bruits. No lymphadenopathy. No thyromegaly. Cardiovascular: S1, S2 heard. No murmurs, gallops, or rubs. Regular rate and rhythm. Respiratory: Clear bilaterally to auscultation. No wheezing or rales noted. The patient is not using any accessory muscles or having work of breathing. Abdomen: Soft, nontender to palpation. Bowel sounds present. No organomegaly. Extremities: Right lower extremity edema. There is also 1 under the level of the knee without any signs of bleeding or infection. Peripheral pulses present in both legs. No clubbing or cyanosis. Neurological: Patient alert and oriented x3. Able to move 4 extremities. LABORATORY DATA: White cell count 13.83, hemoglobin 10.1, hematocrit 31.0, platelets 399,000. Sodium 135, potassium 4.6, chloride 95, bicarbonate 29, BUN 26 creatinine 1.3. ASSESSMENT AND PLAN: 1. Status post right total knee arthroplasty revision, postoperative day #8 and evacuation of hematoma, revision debridement patellectomy with quadriceps tendon repair postoperative day 5. The patient continues working with physical therapy and as per patient he was notified by his orthopedic surgeon, he is leaving tomorrow. 2. Acute kidney injury. The creatinine is at his baseline during all of his stay at hospital. We will continue with the same management. 3. Hyperkalemia. This condition is completely resolved. 4. Leukocytosis. The patient is on cefazolin. No fever, no chills. No cough. No urinary symptoms. 5. Anemia of acute blood loss. The patient was transfused 3 days ago. By now, the hemoglobin is stable. We will continue checking CBC daily. 6. Hypertension. We will continue with home medications. 7. Hyperlipidemia. We will continue home medications. 8. Deep vein thrombosis prophylaxis. Patient is on Xarelto. 9. Gastrointestinal prophylaxis. Patient is on Protonix. 10. Disposition. Patient is going to rehab facility tomorrow.
[2016-06-23] MEDS: DESYREL PO SCH (20:48)
[2016-06-24] MEDS: KEFZOL 1 GM/D5W 50 ML IV SCH ×2 (00:37→09:00)
[2016-06-24] MEDS: TYLENOL PO SCH ×3 (00:37→11:16)
[2016-06-24] MEDS: ULTRAM PO SCH ×3 (00:38→11:16)
[2016-06-24 06:02] LABS: MANUAL DIFF NEEDED? NO
[2016-06-24] MEDS: XARELTO PO SCH (06:14)
[2016-06-24 06:18] LABS: BASO% 0.3 % (0.0-0.8); EOS# 0.52 X1000 (0.0-0.7); HEMATOCRIT 30.5 % (42.0-52.0); HEMOGLOBIN 9.8 g/dL (14.0-18.0); IMM GRAN# 0.17 X1000 (0.0-0.04); IMM GRAN% 1.3 % (0.0-0.5); LYMPH# 1.47 X1000 (1.2-3.4); LYMPH% 11.3 % (20.5-51.1); MCH 29.1 PG (27-31); MCHC 32.1 g/dL (33-37); MCV 90.5 FL (81-99); MONO# 1.54 X1000 (0.11-0.59); MONO% 11.8 % (1.7-9.3); MPV 9.5 FL (7.4-10.4); NEUT% 71.3 % (42.2-75.2); PLT 411 X1000 (130-400); RBC 3.37 XMIL (4.7-6.1)
[2016-06-24 06:25] LABS: AGAP 9; ALBUMIN 2.9 g/dL (3.5-5.0); ALKALINE PHOSPHATASE 43 U/L (32-122); BUN 24 mg/dL (8-22); CALCIUM 9.8 mg/dL (8.8-10.2); CHLORIDE 95 mmol/L (98-107); COSMO 272; GOT 25 U/L (10-34); GPT 17 U/L (10-44); MAGNESIUM 2.1 mg/dL (1.5-2.7); POTASSIUM 4.3 mmol/L (3.5-5.1); SODIUM 134 mmol/L (136-145); TCO2 30 mmol/L (25-35); TOTAL PROTEIN 6.2 g/dL (6.3-8.3)
[2016-06-24] MEDS: LIPITOR PO SCH (09:16)
[2016-06-24] MEDS: LYRICA PO SCH (09:16)
[2016-06-24] MEDS: PERICOLACE PO SCH (09:16)
[2016-06-24] MEDS: MIRALAX PO SCH (09:16)
[2016-06-24] MEDS: PEPCID PO SCH (09:16)
[2016-06-24] MEDS: PERIDEX MT SCH (09:16)
[2016-06-24] MEDS: ADALAT CC PO SCH (09:17)
--- NOTE | 2016-06-24 11:03 | DISCHARGE SUMMARY ---
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 He failed the patellar component revision, tearing his quadriceps tendon, resulting in a patellectomy being performed 6 days later, this past Monday. DISCHARGE MEDICATIONS: See discharge medication list. DISPOSITION: The patient is discharged to rehab with instructions for ambulation with no flexion of his right knee. He is instructed to remove sutures and meg in 10 days, instructed to return to see Dr. Go next . HOSPITAL COURSE: On the day of admission, the patient underwent a revision of his right total knee which included revision of his patellar component and exchange of his polyethylene. He was doing well but apparently began having buckling of his knee and then developed a hemarthrosis and bleeding. We subsequently, on the following Monday, 6 days after his index surgery, explored his hematoma, and he was found to have a completely ruptured quadriceps mechanism, and his patella was not salvageable. Therefore, he underwent a patellectomy and closure of the quadriceps tendon to the patellar tendon, and since then, we have held his knee in extension. He is, at discharge, doing well except for slow progress with physical therapy. He is having difficulty maintaining the fact that he cannot bend his right knee. Otherwise, he is doing well. His wound is clean, dry, and intact without infection. He has no sign of deep venous thrombosis. He is discharged to rehab in stable condition with instructions to follow up with Dr. Pierce Go as described above.
[2016-06-24 11:10] VITALS: BP 145/68
[2016-06-24] MEDS: MILK OF MAGNESIA PO PRN (13:47)
== END 2016-06-24 13:55 | DRG 464 ==
LOC: SURHOLD 03:59 → 4N 10:18
PROVIDERS: ADMIT Orthopaedic Surgery; ATTEND Orthopaedic Surgery
PROC: 0SUC09C Supplement Right Knee Joint with Liner, Patellar Surface, Open Approach (ICD-10-PCS; 2016-06-13)
PROC: 0SPC09Z Removal of Liner from Right Knee Joint, Open Approach (ICD-10-PCS; 2016-06-13)
PROC: 0SUC09Z Supplement Right Knee Joint with Liner, Open Approach (ICD-10-PCS; 2016-06-13)
PROC: 0SPC0JC Removal of Synthetic Substitute from Right Knee Joint, Patellar Surface, Open Approach (ICD-10-PCS; principal; 2016-06-13 09:21)
PROC: 30233N1 Transfusion of Nonautologous Red Blood Cells into Peripheral Vein, Percutaneous Approach (ICD-10-PCS; 2016-06-17)
PROC: 0LQQ0ZZ Repair Right Knee Tendon, Open Approach (ICD-10-PCS; 2016-06-18)
PROC: 0SPC0JC Removal of Synthetic Substitute from Right Knee Joint, Patellar Surface, Open Approach (ICD-10-PCS; 2016-06-18)
PROC: 0SCC0ZZ Extirpation of Matter from Right Knee Joint, Open Approach (ICD-10-PCS; 2016-06-18 07:53)
DX: T84.032A Mechanical loosening of internal right knee prosthetic joint, initial encounter (principal); N17.9 Acute kidney failure, unspecified; E87.5 Hyperkalemia; E86.1 Hypovolemia; E87.1 Hypo-osmolality and hyponatremia; D62 Acute posthemorrhagic anemia; M96.840 Postprocedural hematoma of a musculoskeletal structure following a musculoskeletal system procedure; M66.261 Spontaneous rupture of extensor tendons, right lower leg; I12.9 Hypertensive chronic kidney disease with stage 1 through stage 4 chronic kidney disease, or unspecified chronic kidney disease; N18.3 Chronic kidney disease, stage 3 (moderate); E78.00 Pure hypercholesterolemia, unspecified; M19.90 Unspecified osteoarthritis, unspecified site; K59.00 Constipation, unspecified; Z85.46 Personal history of malignant neoplasm of prostate; Z87.11 Personal history of peptic ulcer disease; Z80.0 Family history of malignant neoplasm of digestive organs; Z80.8 Family history of malignant neoplasm of other organs or systems; Z79.1 Long term (current) use of non-steroidal anti-inflammatories (NSAID); Z79.899 Other long term (current) drug therapy
CPT/HCPCS: 71010; 76770; 80048; 80053; 80069; 80076; 81001; 82570; 83735; 83935; 84100; 84156; 84300; 85014; 85018; 85025; 85610; 85730; 86850; 86900; 86901; 86920; 93005; 93010; 93971; 94640; 94761; 94799; C9290; J0131; J0330; J0690; J1885; J1940; J2270; J2274; J2370; J2405; J3010; J3370; J7030; J7040; J7050; J7120; P9016; 97110-GP; 97116-GP; 97530-GP; J2710; S0020